=== PATIENT | female | born 1980 | race Caucasian/White ===

== ENCOUNTER 2016-05-20 14:26 | Emergency (ER) | payer OTHER ==
[~2016-05-20 14:26] MED LIST: ALBUTEROL17 GM INH; ALPRAZOLAM PO; BENTYL20 MG PO; DARVOCET-N 1001 TAB PO; DEPAKOTE; ESGIC CAPSULE1 CAP PO; FLEXERIL PO; IBUPROFEN800 MG PO; MUCINEX D ER T1 EACH; NAPROSYN500 MG PO; NEXIUM; PHENERGAN; PHENERGAN25 MG PO; PRENATAL VITAMI1 TA3; SEROQUEL300 MG PO; SEROQUEL400 MG PO; TESSALON200 MG PO; TUSSIONEX PENN473 ML PO; VALTREX PO; VICODIN 5/500 T1 TAB PO; VISTARIL PO; XANAX2 MG PO; ZITHROMAX PO
== END 2016-05-20 15:10 | disposition home or self-care (01) ==
LOC: SED 14:26
DX: S23.3XXA Sprain of ligaments of thoracic spine, initial encounter (principal); F17.210 Nicotine dependence, cigarettes, uncomplicated; Z90.710 Acquired absence of both cervix and uterus; Z79.899 Other long term (current) drug therapy; Z88.5 Allergy status to narcotic agent; Z88.8 Allergy status to other drugs, medicaments and biological substances; X50.0XXA Overexertion from strenuous movement or load, initial encounter
CPT/HCPCS: 99283

== ENCOUNTER 2016-06-04 17:00 | Emergency (ER) | payer OTHER ==
[2016-06-04 16:28] LABS: INFLUENZA A NEG (NEG); INFLUENZA B POS (NEG)
== END 2016-06-04 17:17 | disposition home or self-care (01) ==
LOC: SED 17:00
PROVIDERS: Nurse Practitioner
DX: J10.1 Influenza due to other identified influenza virus with other respiratory manifestations (principal); F17.200 Nicotine dependence, unspecified, uncomplicated; Z88.5 Allergy status to narcotic agent; Z88.8 Allergy status to other drugs, medicaments and biological substances
CPT/HCPCS: 87804; 99283

== ENCOUNTER 2016-08-18 08:47 | Emergency (ER) | payer OTHER | END 2016-08-18 09:16 | disposition home or self-care (01) | LOC: SED 08:47 | DX: G43.909 Migraine, unspecified, not intractable, without status migrainosus (principal); F41.9 Anxiety disorder, unspecified; F31.9 Bipolar disorder, unspecified; F17.200 Nicotine dependence, unspecified, uncomplicated; Z90.710 Acquired absence of both cervix and uterus; Z79.899 Other long term (current) drug therapy; Z88.5 Allergy status to narcotic agent; Z88.8 Allergy status to other drugs, medicaments and biological substances | CPT/HCPCS: 99282 ==

== ENCOUNTER 2016-10-14 07:47 | Emergency (ER) | payer OTHER ==
[2016-10-14] MEDS ORDERED: HYDROCODON-ACE1 EAC5 PO (08:49)
[2016-10-14] MEDS ORDERED: MIDRIN PO (08:50)
[2016-10-14] MEDS ORDERED: ZOFRAN ODT4 M1 PO (08:50)
== END 2016-10-14 08:57 | disposition home or self-care (01) ==
LOC: SED 07:47
DX: G43.909 Migraine, unspecified, not intractable, without status migrainosus (principal); Z88.5 Allergy status to narcotic agent; Z79.899 Other long term (current) drug therapy; Z90.710 Acquired absence of both cervix and uterus
CPT/HCPCS: 96372; 99283; J1885